=== PATIENT | male | born 1970 | race Caucasian/White ===

== ENCOUNTER 2017-01-25 11:26 | Emergency (ER) | payer OTHER ==
[~2017-01-25] VITALS: Ht 172.7 cm; Wt 72.2 kg
[~2017-01-25 11:26] MED LIST: ESZO3 PO; LORA-474 PO
[2017-01-25 11:38] VITALS: BP 126/86; PULSE 110; RESP 12; TEMP 99.5; O2SAT 100
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
[2017-01-25] MEDS ORDERED: KETOROLAC TROMETHAMINE 60 MG/2 ML (IM) VIAL IM ONE (12:45)
== END 2017-01-25 13:04 | disposition home or self-care (01) ==
LOC: NEPK 11:26
DX: S90.31XA Contusion of right foot, initial encounter (principal); M54.5 Low back pain; Z87.39 Personal history of other diseases of the musculoskeletal system and connective tissue; V89.2XXA Person injured in unspecified motor-vehicle accident, traffic, initial encounter
CPT/HCPCS: 73610; 73630; 96372; 99284; E0113; L3260